=== PATIENT | female | born 1970 | race Caucasian/White ===

== ENCOUNTER 2017-10-25 05:27 | Day surgery (SDC) | payer OTHER ==
[~2017-10-25] VITALS: Ht 175.3 cm; Wt 88.0 kg
[~2017-10-25 05:27] MED LIST: ONE DAILY HEAL1 EACH PO
[2017-10-25 06:21] VITALS: BP 107/57
[2017-10-25 09:25] VITALS: BP 123/58
[2017-10-25 09:57] VITALS: BP 119/58
== END 2017-10-25 10:20 | disposition home or self-care (01) ==
LOC: SDC
DX: N92.0 Excessive and frequent menstruation with regular cycle (principal); N84.0 Polyp of corpus uteri; F41.9 Anxiety disorder, unspecified; M19.90 Unspecified osteoarthritis, unspecified site; L30.9 Dermatitis, unspecified; Z83.71 Family history of colonic polyps; Z83.3 Family history of diabetes mellitus; Z82.3 Family history of stroke; Z83.42 Family history of familial hypercholesterolemia; Z82.49 Family history of ischemic heart disease and other diseases of the circulatory system; Z68.31 Body mass index [BMI] 31.0-31.9, adult; Z98.51 Tubal ligation status
CPT/HCPCS: 88305; J0131; J0690; J1100; J1885; J2250; J2405; J3010